=== PATIENT | male | born 1955 | race African-American/Black ===

== ENCOUNTER 2024-06-21 09:35 | Emergency (ER) | payer MEDICAID, OTHER ==
[~2024-06-21] VITALS: Ht 182.9 cm; Wt 75.0 kg
[~2024-06-21 09:35] MED LIST: ALBU18HF2 IH; FLUT1DIS3 INH; P20 PO
[2024-06-21 09:41] VITALS: O2SAT 98
[2024-06-21] MEDS: FUROSEMIDE 40MG/4ML VIAL IV ONE (10:00)
[2024-06-21] MEDS: ASPIRIN 81MG TABLET PO ONE (10:18)
[2024-06-21 10:29] LABS: BASOPHILS % 0.8 % (0.0-2.0); EOSINOPHILS % 9.6 % (0.0-5.0); HEMATOCRIT. 39.7 % (42.0-52.0); HEMOGLOBIN. 12.4 g/dL (14.0-18.0); LYMPHOCYTES % 11.8 % (20.0-50.0); MEAN CORPUSCULAR HGB CONC 31.3 g/dL (31.0-37.0); MEAN CORPUSCULAR VOLUME 89.5 fL (80.0-94.0); MEAN PLATELET VOLUME 8.8 fl (7.4-10.4); MONOCYTES % 8.2 % (2.0-8.0); NEUTROPHILS % 69.6 % (40.0-76.0); PLATELET 184 x1000/uL (130-400); RED BLOOD CELL COUNT 4.44 mill/uL (4.7-6.1); RED CELL DISTRIBUTION WIDTH 15.1 % (11.6-14.6); WHITE BLOOD COUNT 4.6 x1000/uL (4.5-11.0)
[2024-06-21 10:31] LABS: CHLORIDE 109 mEq/L (98-107); POTASSIUM 4.2 mEq/L (3.5-5.1); SODIUM 141 mEq/L (136-145)
[2024-06-21 10:32] LABS: CALCIUM 8.7 mg/dL (8.7-10.4); CARBON DIOXIDE 29 mEq/L (21-32)
[2024-06-21 10:37] LABS: GLUCOSE 92 mg/dL (70-105); UREA NITROGEN BLOOD 27 mg/dL (9-23)
[2024-06-21 10:42] LABS: CREATININE 1.5 mg/dL (0.6-1.3)
[2024-06-21 10:44] LABS: TROPONIN I HIGH SENSITIVITY 65 ng/L (3.0-53)
[2024-06-21 13:15] LABS: TROPONIN I HIGH SENSITIVITY 53 ng/L (3.0-53)
[2024-06-21 15:52] VITALS: BP 162/115; PULSE 84; RESP 24; TEMP 36.89184; O2SAT 100
== END 2024-06-21 16:02 | disposition short-term general hospital (02) ==
LOC: ER 09:35 → CANBEDREQ 14:31 → ER 16:02
DX: I11.0 Hypertensive heart disease with heart failure (principal); I50.9 Heart failure, unspecified; Z79.52 Long term (current) use of systemic steroids; Z79.51 Long term (current) use of inhaled steroids
CPT/HCPCS: 80048; 83880; 85025; 84484; 36415; 71045; 93005; 96374; 99285; Z7610 ×3; J1940

== ENCOUNTER 2024-09-28 15:25 | Emergency (ER) | payer OTHER ==
[~2024-09-28] VITALS: Ht 182.9 cm; Wt 80.0 kg
[2024-09-28 15:32] VITALS: TEMP 98.4
[2024-09-28] MEDS: ASPIRIN 81MG TABLET PO ONE (15:48)
[2024-09-28 16:05] VITALS: PULSE 86; RESP 22; O2SAT 99
[2024-09-28] MEDS: ALBUTEROL (0.083%) 2.5MG/3ML NEB HHN SCH (16:05)
[2024-09-28] MEDS: IPRATROPIUM BROMIDE (0.02%) 0.5MG/2.5ML NEB HHN STA (16:05)
[2024-09-28] MEDS: FUROSEMIDE 40MG/4ML VIAL IVP ONE (16:40)
[2024-09-28 16:55] LABS: CARBON DIOXIDE 23 mEq/L (21-32); CHLORIDE 108 mEq/L (98-107); POTASSIUM 4.3 mEq/L (3.5-5.1); SODIUM 138 mEq/L (136-145)
[2024-09-28 16:56] LABS: CALCIUM 9.5 mg/dL (8.7-10.4)
[2024-09-28 16:59] LABS: TROPONIN I HIGH SENSITIVITY 47 ng/L (3.0-53)
[2024-09-28 17:00] LABS: CREATININE 1.6 mg/dL (0.6-1.3)
[2024-09-28 17:01] LABS: GLUCOSE 109 mg/dL (70-105); UREA NITROGEN BLOOD 30 mg/dL (9-23)
[2024-09-28 17:27] LABS: EOSINOPHILS % 8.8 % (0.0-5.0); HEMATOCRIT. 41.1 % (42.0-52.0); HEMOGLOBIN. 12.9 g/dL (14.0-18.0); LYMPHOCYTES % 26.1 % (20.0-50.0); MEAN CORPUSCULAR HEMOGLOBIN 28.4 pg (28.0-32.0); MEAN CORPUSCULAR HGB CONC 31.4 g/dL (31.0-37.0); MEAN CORPUSCULAR VOLUME 90.4 fL (80.0-94.0); MEAN PLATELET VOLUME 9.3 fl (7.4-10.4); MONOCYTES % 9.8 % (2.0-8.0); NEUTROPHILS % 54.3 % (40.0-76.0); PLATELET 160 x1000/uL (130-400); RED BLOOD CELL COUNT 4.55 mill/uL (4.7-6.1); WHITE BLOOD COUNT 4.4 x1000/uL (4.5-11.0)
[2024-09-28 18:16] LABS: DIFFERENTIAL COMMENT 1
[2024-09-28 20:49] LABS: TROPONIN I HIGH SENSITIVITY 43 ng/L (3.0-53)
[2024-09-28 22:00] VITALS: BP 147/74; PULSE 67; RESP 16; O2SAT 95
== END 2024-09-28 22:10 | disposition short-term general hospital (02) ==
LOC: ER 15:25 → EDBEDREQ 15:43 → EDBEDREQTM 18:30 → ER 22:10
DX: R06.02 Shortness of breath (principal); I11.0 Hypertensive heart disease with heart failure; I50.9 Heart failure, unspecified; Z87.891 Personal history of nicotine dependence; Z79.52 Long term (current) use of systemic steroids; Z79.51 Long term (current) use of inhaled steroids; I25.10 Atherosclerotic heart disease of native coronary artery without angina pectoris; E78.5 Hyperlipidemia, unspecified
CPT/HCPCS: 80048; 83880; 85025; 84484; 36415; 71045; 94640; 94664; 93005; 94070; 98960; 96374; 99285; Z7610 ×5; J1940; A4663; A4606